=== PATIENT | female | born 1985 | race Caucasian/White ===

== ENCOUNTER 2017-05-27 00:12 | Inpatient (IN) | payer OTHER ==
[2017-05-27] VITALS (10 sets, daily range): BP systolic 102–146; BP diastolic 59–79
[~2017-05-27] VITALS: Ht 167.6 cm; Wt 75.8 kg
[2017-05-27 02:05] LABS: EOSINOPHIL (%) 1.5 % (0-5); EOSINOPHIL COUNT 0.2 K/uL (0-0.3); IMMATURE GRANULOCYTE (%) 0.3 % (0.0-0.7); INSTRUMENT ABS NEUTROPHIL CT 8.6 K/uL; LYMPHOCYTE COUNT 2.2 K/uL (1.0-2.8); MCH 32.9 PG (29.0-34.0); MCHC 34.3 G/DL (30.0-36.0); MCV 95.9 FL (83-99); MEAN PLAT.VOLUME 10.9 uM^3 (9.5-12.4); MONOCYTE (%) 7.4 % (3-12); MONOCYTE COUNT 0.9 K/uL (0-0.8); NEUTROPHIL (%) 72.2 % (45-76); NEUTROPHIL COUNT 8.6 K/uL (1.8-6.4); PLATELET COUNT 195 K/uL (156-360); RBC DIS.WIDTH-CV 12.3 % (11.8-14.6); RBC DIS.WIDTH-SD 43.5 % (39-53); RED BLOOD COUNT 4.17 M/uL (3.80-5.20); WHITE BLOOD COUNT 11.9 K/uL (4.1-10.2)
[2017-05-27] MEDS ORDERED: MOTRIN800 MG PO (02:19)
[2017-05-28 07:52] VITALS: BP 125/83
[2017-05-28 15:42] VITALS: BP 118/79
[2017-05-28 22:53] VITALS: BP 112/53
[2017-05-29 07:20] VITALS: BP 128/72
== END 2017-05-29 12:52 | disposition home or self-care (01) | DRG 775 ==
LOC: LDRP-OP 00:12 → 2WEST 00:13 → LDRP-OP 06-29 13:20
PROVIDERS: Obstetrics & Gynecology
DX: O99.334 Smoking (tobacco) complicating childbirth (principal); F17.200 Nicotine dependence, unspecified, uncomplicated; Z3A.39 39 weeks gestation of pregnancy; Z37.0 Single live birth; Z23 Encounter for immunization
CPT/HCPCS: 85025; 90686; J7120